=== PATIENT | female | born 2000 | race African-American/Black ===

== ENCOUNTER 2019-11-17 19:40 | Emergency (ER) | payer OTHER ==
[~2019-11-17] VITALS: Ht 165.1 cm; Wt 79.4 kg
[2019-11-17 19:48] VITALS: BP 131/61
[2019-11-17] MEDS ORDERED: ORPH100T PO (20:35)
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
== END 2019-11-17 20:42 | disposition home or self-care (01) ==
LOC: ER 19:40
DX: M79.10 Myalgia, unspecified site (principal); R52 Pain, unspecified; V49.49XA Driver injured in collision with other motor vehicles in traffic accident, initial encounter; Y93.89 Activity, other specified; Y92.488 Other paved roadways as the place of occurrence of the external cause; Y99.8 Other external cause status
CPT/HCPCS: 99283